=== PATIENT | male | born 1970 | race African-American/Black ===

== ENCOUNTER 2020-02-04 04:41 | Emergency (ER) | payer OTHER ==
[~2020-02-04] VITALS: Ht 175.3 cm; Wt 86.2 kg
[2020-02-04 05:45] LABS: BASOPHILS 0.9 % (0.0-2.0); EOSINOPHILS 0.5 % (0.0-3.0); HEMATOCRIT 41.2 % (42.0-52.0); HEMOGLOBIN 13.7 gm/dL (14.0-18.0); LYMPHOCYTES 43.9 % (24.0-44.0); MCHC 33.1 g/dL (28.0-37.0); MCV 99.7 fL (80.0-100.0); MONOCYTES 11.1 % (1.0-8.0); PLATELET COUNT 184 thou/uL (150-400); POLYS 43.6 % (36.0-66.0); RBC 4.14 mil/uL (4.50-6.00); RDW 12.9 % (10.5-14.5); WBC 4.6 thou/uL (4.0-11.0)
[2020-02-04 05:52] LABS: CALCIUM 10.5 mg/dL (8.5-10.1); CREATININE 1.6 mg/dL (0.7-1.3); POTASSIUM 3.8 mmol/L (3.5-5.1)
[2020-02-04] MEDS ORDERED: TESSALON PERLE100 MG PO (07:10)
[2020-02-04] MEDS ORDERED: NORVASC5 M1 PO (07:10)
[2020-02-04 07:24] VITALS: BP 199/118
== END 2020-02-04 07:26 | disposition home or self-care (01) ==
LOC: ER 04:41
PROVIDERS: Emergency Medicine
DX: J06.9 Acute upper respiratory infection, unspecified (principal); I10 Essential (primary) hypertension; R91.8 Other nonspecific abnormal finding of lung field; E66.9 Obesity, unspecified

== ENCOUNTER 2020-05-31 21:15 | Emergency (ER) | payer OTHER ==
[~2020-05-31] VITALS: Ht 175.3 cm; Wt 77.1 kg
[~2020-05-31 21:15] MED LIST: NORVASC5 M1 PO; TESSALON PERLE100 MG PO
[2020-05-31 23:13] VITALS: BP 145/94
[2020-05-31] MEDS ORDERED: NORVASC5 M1 PO (23:17)
== END 2020-05-31 23:13 | disposition home or self-care (01) ==
LOC: ER 21:15
DX: R05 Cough (principal); Z20.828 Contact with and (suspected) exposure to other viral communicable diseases; F17.210 Nicotine dependence, cigarettes, uncomplicated; Z79.899 Other long term (current) drug therapy